=== PATIENT | female | born 1985 | race Hispanic/Latino ===

== ENCOUNTER 2020-06-05 08:49 | Outpatient (CLI) | payer BC, SELFPAY | END 2020-06-05 08:50 | disposition home or self-care (01) | LOC: ANHCOVIDVC 08:49 | PROVIDERS: PCP Family Medicine | DX: Z23 Encounter for immunization (principal) | CPT/HCPCS: 0001A; 91300 ==

== ENCOUNTER 2020-06-26 09:01 | Outpatient (CLI) | payer BC, SELFPAY | END 2020-06-26 09:02 | disposition home or self-care (01) | LOC: ANHCOVIDVC 09:01 | PROVIDERS: PCP Family Medicine | DX: Z23 Encounter for immunization (principal) | CPT/HCPCS: 0002A; 91300 ==